=== PATIENT | male | born 2000 | race Caucasian/White ===

== ENCOUNTER 2025-03-29 03:18 | Emergency (ER) | payer BC ==
[~2025-03-29] VITALS: Ht 165.1 cm; Wt 61.2 kg
[2025-03-29] MEDS ORDERED: dexaMETHasone SOD PHOSPHATE 1 ML ONE (03:43)
[2025-03-29] MEDS ORDERED: diphenhydrAMINE HCL 50 MG/ML VIAL ONE (03:43)
[2025-03-29] MEDS: diphenhydrAMINE HCL 50 MG/ML VIAL IM ONE (03:48)
[2025-03-29] MEDS: dexaMETHasone SOD PHOSPHATE 4 MG/ML VIAL IM ONE (03:48)
[2025-03-29] MEDS ORDERED: PRED50TA PO (04:03)
[2025-03-29 05:18] VITALS: BP 135/80; TEMP 98; O2SAT 98
[2025-03-30] MEDS ORDERED: HYDR-500 PO (11:53)
[2025-03-30] MEDS ORDERED: EPIN0.3P3 IM (12:20)
== END 2025-03-29 05:19 | disposition home or self-care (01) ==
LOC: ER 03:22
DX: L50.9 Urticaria, unspecified (principal); J45.909 Unspecified asthma, uncomplicated; F17.200 Nicotine dependence, unspecified, uncomplicated; Z79.52 Long term (current) use of systemic steroids; Z60.2 Problems related to living alone
CPT/HCPCS: 99284; 96372 ×2; J1100; J1200

== ENCOUNTER 2025-03-30 10:53 | Emergency (ER) | payer BC ==
[~2025-03-30] VITALS: Ht 165.1 cm; Wt 65.8 kg
[~2025-03-30 10:53] MED LIST: PRED50TA PO
[2025-03-30] MEDS: predniSONE 20 MG TABLET PO ONE (11:28)
[2025-03-30] MEDS ORDERED: predniSONE 20 MG TABLET ONE (11:28)
[2025-03-30] MEDS ORDERED: HYDR-500 PO (11:53)
[2025-03-30] MEDS ORDERED: methylPREDNISolone SOD SUCC 40 MG/ML VIAL ONE (12:02)
[2025-03-30] MEDS: methylPREDNISolone SOD SUCC 40 MG/ML VIAL IV ONE (12:07)
[2025-03-30] MEDS ORDERED: EPIN0.3P3 IM (12:20)
[2025-03-30 12:34] VITALS: BP 114/71; TEMP 98.4; O2SAT 96
== END 2025-03-30 12:37 | disposition home or self-care (01) ==
LOC: ER 11:02
DX: L50.9 Urticaria, unspecified (principal); F17.200 Nicotine dependence, unspecified, uncomplicated; J45.909 Unspecified asthma, uncomplicated; Z60.2 Problems related to living alone; Z79.52 Long term (current) use of systemic steroids
CPT/HCPCS: 99283; J7512; J2919